=== PATIENT | male | born 1990 | race African-American/Black ===

== ENCOUNTER 2019-06-02 21:16 | Emergency (ER) | payer BC ==
[~2019-06-02] VITALS: Ht 182.9 cm; Wt 88.2 kg
[2019-06-02 21:59] VITALS: BP 131/100
== END 2019-06-02 21:59 | disposition home or self-care (01) ==
LOC: ED 21:16
DX: L03.113 Cellulitis of right upper limb (principal)

== ENCOUNTER → 2019-07-25 | Emergency (ER) | payer BC ==
[~2019-07-25] VITALS: Ht 182.9 cm; Wt 89.4 kg
[2019-07-25 21:03] VITALS: Ht 182.9 cm; Wt 89.4 kg
[2019-07-26 01:09] LABS: BASOPHIL % 0.3 % (0-2); PLATELET COUNT 200 x10^3mcL (130-400); RED CELL DISTRIBUTION WIDTH 12.5 % (11.5-14.5)
[2019-07-26 01:17] LABS: CALCIUM 8.8 mg/dL (8.5-10.1); CARBON DIOXIDE 31.8 mmol/L (21-32); CHLORIDE SERUM 104 mmol/L (98-107); CREATININE SERUM 1.1 mg/dL (0.7-1.3); GFR1 > 60 mL/min; GLUCOSE SERUM 95 mg/dL (74-106); POTASSIUM SERUM 3.6 mmol/L (3.5-5.1); SODIUM SERUM 143 mmol/L (136-145)
[2019-07-26 01:22] LABS: ALBUMIN 4.2 g/dL (3.4-5.0); ALKALINE PHOSPHATASE 93 U/L (46-116); ALT/SGPT 31 U/L (16-63); AST/SGOT 17 U/L (15-37); BILIRUBIN TOTAL 0.39 mg/dL (0.20-1.00); HDL CHOLESTEROL 57 mg/dL (40-60); TOTAL PROTEIN, SERUM 7.6 g/dL (6.4-8.2); TRIGLYCERIDES 89 mg/dL (<150)
[2019-07-26 01:27] LABS: CHOLESTEROL 212 mg/dL (<200); CHOLESTEROL/HDL RATIO 3.7
[2019-07-26 01:40] LABS: FREE T4 1.13 ng/dL (0.76-1.46); FREE THYROXINE INDEX 4.1 ug/dL (1.4-4.5); T3 TOTAL 1.15 ng/mL; T4(THYROXINE) 10.4 ug/dL (4.7-13.3)
[2019-07-26 03:49] VITALS: BP 120/70
== END ==
LOC: ED 20:50
PROVIDERS: Emergency Medicine
DX: R07.89 Other chest pain (principal)
CPT/HCPCS: 36415; 84439